=== PATIENT | female | born 1985 | race Caucasian/White ===

== ENCOUNTER 2018-09-01 09:26 | Emergency (ER) | payer SELFPAY ==
[~2018-09-01] VITALS: Ht 162.6 cm; Wt 82.0 kg
[2018-09-01 12:00] VITALS: BP 153/87
== END 2018-09-01 14:00 | disposition left against medical advice (07) ==
LOC: ER 09:26
DX: Z53.21 Procedure and treatment not carried out due to patient leaving prior to being seen by health care provider (principal)

== ENCOUNTER 2021-11-13 22:13 | Emergency (ER) | payer MEDICAID ==
[~2021-11-13] VITALS: Ht 162.6 cm; Wt 83.4 kg
[~2021-11-13 22:13] MED LIST: CEPH500T MT; PHEN-909 MT
[2021-11-13 22:31] VITALS: BP 110/65
[2021-11-14 04:11] LABS: BASOPHILS % 1.7 % (0.0-2.0); EOSINOPHILS % 1.8 % (0.0-5.0); HEMATOCRIT. 34.2 % (36.0-48.0); MEAN CORPUSCULAR HEMOGLOBIN 32.8 pg (28.0-32.0); MEAN CORPUSCULAR VOLUME 93.8 fL (81.0-99.0); MEAN PLATELET VOLUME 8.1 fl (7.4-10.4); MONOCYTES % 6.8 % (2.0-8.0); NEUTROPHILS % 54.7 % (40.0-76.0); PLATELET 243 x1000/uL (130-400); RED BLOOD CELL COUNT 3.64 mill/uL (4.2-5.4); RED CELL DISTRIBUTION WIDTH 12.8 % (11.6-14.6)
[2021-11-14 04:19] LABS: CHLORIDE 107 mEq/L (98-107)
[2021-11-14 04:41] LABS: B-HCG QUANTITATIVE 59544 mIU/mL (<3)
== END 2021-11-14 07:21 | disposition home or self-care (01) ==
LOC: ER 22:13
DX: O46.91 Antepartum hemorrhage, unspecified, first trimester (principal); Z3A.08 8 weeks gestation of pregnancy; Z98.890 Other specified postprocedural states
CPT/HCPCS: 36415; 76801; 80053; 81025; 84702; 85025; 86850; 86900; 99284

== ENCOUNTER 2021-12-09 16:46 | Observation (INO) | payer MEDICAID | END 2021-12-09 17:00 | disposition home or self-care (01) | LOC: 8 EST LDRP 16:46 | PROVIDERS: ADMIT Obstetrics & Gynecology; ATTEND Obstetrics & Gynecology | DX: O34.11 Maternal care for benign tumor of corpus uteri, first trimester (principal); D25.9 Leiomyoma of uterus, unspecified; Z3A.12 12 weeks gestation of pregnancy; Z98.891 History of uterine scar from previous surgery | CPT/HCPCS: G0378 ==

== ENCOUNTER 2021-12-09 17:17 | Emergency (ER) | payer MEDICAID ==
[~2021-12-09] VITALS: Ht 162.6 cm; Wt 85.0 kg
[2021-12-09 17:21] VITALS: BP 130/71
[2021-12-09 20:30] LABS: BASOPHILS % 0.7 % (0.0-2.0); HEMATOCRIT. 35.3 % (36.0-48.0); HEMOGLOBIN. 12.2 g/dL (12.0-16.0); LYMPHOCYTES % 27.1 % (20.0-50.0); MEAN CORPUSCULAR HEMOGLOBIN 32.5 pg (28.0-32.0); MEAN CORPUSCULAR VOLUME 94.2 fL (81.0-99.0); MEAN PLATELET VOLUME 7.9 fl (7.4-10.4); MONOCYTES % 8.4 % (2.0-8.0); NEUTROPHILS % 61.8 % (40.0-76.0); PLATELET 264 x1000/uL (130-400); RED BLOOD CELL COUNT 3.75 mill/uL (4.2-5.4); RED CELL DISTRIBUTION WIDTH 12.5 % (11.6-14.6)
[2021-12-09 20:32] LABS: CHLORIDE 107 mEq/L (98-107)
[2021-12-09 20:50] LABS: CLARITY URINE CLEAR (CLEAR); COLOR URINE YELLOW (YELLOW); KETONES URINE TRACE (NEGATIVE); LEUKOCYTE ESTERASE URINE NEGATIVE (NEGATIVE); NITRITE URINE NEGATIVE (NEGATIVE); OCCULT BLOOD URINE NEGATIVE (NEGATIVE); PH URINE 5.5 (4.5-8.0); PROTEIN URINE NEGATIVE (NEGATIVE); SPECIFIC GRAVITY URINE 1.031 (1.005-1.030); UROBILINOGEN URINE 0.2 E.U./dL (0.2-1.0)
[2021-12-09 20:55] LABS: B-HCG QUANTITATIVE 29674 mIU/mL (<3)
== END 2021-12-09 22:56 | disposition home or self-care (01) ==
LOC: ER 17:17
DX: O34.11 Maternal care for benign tumor of corpus uteri, first trimester (principal); Z3A.12 12 weeks gestation of pregnancy; Z98.890 Other specified postprocedural states
CPT/HCPCS: 36415; 76801; 80053; 81003; 81025; 84702; 85025; 86850; 86900; 99284

== ENCOUNTER 2022-01-04 16:58 | Emergency (ER) | payer MEDICAID ==
[~2022-01-04] VITALS: Ht 162.6 cm; Wt 86.0 kg
[2022-01-04 17:26] VITALS: BP 133/79
[2022-01-04] MEDS ORDERED: ACETAMINOPHEN 325MG TABLET PO ONE (20:45)
[2022-01-04] MEDS ORDERED: TOPUD PO (22:23)
== END 2022-01-05 00:21 | disposition home or self-care (01) ==
LOC: ER 16:58
DX: O98.512 Other viral diseases complicating pregnancy, second trimester (principal); U07.1 COVID-19; O26.812 Pregnancy related exhaustion and fatigue, second trimester; Z3A.15 15 weeks gestation of pregnancy; Z98.890 Other specified postprocedural states
CPT/HCPCS: 87804; 99283

== ENCOUNTER 2022-06-20 08:45 | Inpatient (IN) | payer MEDICAID ==
[~2022-06-20] VITALS: Ht 162.6 cm; Wt 108.9 kg
[~2022-06-20 08:45] MED LIST changes: +TOPUD PO
[2022-06-20] MEDS ORDERED: OXYTOCIN 30 UNITS/500ML NS PMX 500 ML IV SCH (10:00)
[2022-06-20] MEDS ORDERED: METHYLERGONOVINE MALEATE 0.2 MG/ML IM PRN (10:00)
[2022-06-20] MEDS ORDERED: NALOXONE HCL 0.4 MG/ML 1ML VIAL IM PRN (10:00)
[2022-06-20] MEDS: LACTATED RINGERS 1,000 ML IV SCH ×2 (10:30→22:48)
[2022-06-20 10:47] LABS: BASOPHILS % 0.3 % (0.0-2.0); EOSINOPHILS % 1.3 % (0.0-5.0); HEMATOCRIT. 32.7 % (36.0-48.0); HEMOGLOBIN. 11.3 g/dL (12.0-16.0); LYMPHOCYTES % 21.6 % (20.0-50.0); MEAN CORPUSCULAR HEMOGLOBIN 33.5 pg (28.0-32.0); MEAN CORPUSCULAR VOLUME 96.7 fL (81.0-99.0); MONOCYTES % 6.9 % (2.0-8.0); NEUTROPHILS % 69.9 % (40.0-76.0); PLATELET 276 x1000/uL (130-400); RED BLOOD CELL COUNT 3.39 mill/uL (4.2-5.4)
[2022-06-20] MEDS ORDERED: MORPHINE SULFATE/PF 1MG/ML 10ML AMP ONE (11:28)
[2022-06-20] MEDS ORDERED: PHENYLEPHRINE HCL 10 MG/ML 1ML (IV VIAL) IV ONE (11:28)
[2022-06-20] MEDS ORDERED: ONDANSETRON HCL 4MG/2ML INJ ONE (11:55)
[2022-06-20] MEDS ORDERED: KETOROLAC 60MG/2ML VIAL IM ONE (11:55)
[2022-06-20] MEDS ORDERED: DEXAMETHASONE 4MG/ML 1ML VIAL ONE (11:55)
[2022-06-20] MEDS ORDERED: CEFAZOLIN SODIUM 1000MG/VIAL ONE (11:55)
[2022-06-20] MEDS ORDERED: EPHEDRINE SULFATE 50MG/ML VIAL ONE (11:55)
[2022-06-20 12:07] LABS: CLARITY URINE CLEAR (CLEAR); COLOR URINE YELLOW (YELLOW); KETONES URINE NEGATIVE (NEGATIVE); LEUKOCYTE ESTERASE URINE NEGATIVE (NEGATIVE); NITRITE URINE NEGATIVE (NEGATIVE); OCCULT BLOOD URINE NEGATIVE (NEGATIVE); PH URINE 6.5 (4.5-8.0); PROTEIN URINE NEGATIVE (NEGATIVE); UROBILINOGEN URINE 0.2 E.U./dL (0.2-1.0)
[2022-06-20] MEDS ORDERED: MORPHINE SULFATE 10 MG/ML CPJ IV PRN (12:30)
[2022-06-20] MEDS ORDERED: FENTANYL CITRATE/PF 50MCG/ML 2ML VIAL IV PRN (12:30)
[2022-06-20] MEDS ORDERED: NALOXONE HCL 0.4 MG/ML 1ML VIAL IV PRN (12:30)
[2022-06-20 12:41] LABS: *AMPHETAMINES SCREEN URINE NEGATIVE (NEGATIVE); *BARBITURATES SCREEN URINE NEGATIVE (NEGATIVE); *BENZODIAZEPINES SCREEN URINE NEGATIVE (NEGATIVE); *COCAINE SCREEN URINE NEGATIVE (NEGATIVE); CANNABINOID URINE SCREEN NEGATIVE (NEGATIVE); METHADONE URINE SCREEN NEGATIVE (NEGATIVE); OPIATES URINE SCREEN NEGATIVE (NEGATIVE); PHENCYCLIDINE URINE SCREEN NEGATIVE (NEGATIVE)
[2022-06-20 12:52] LABS: HEPATITIS B SURFACE ANTIGEN NEGATIVE
[2022-06-20] MEDS ORDERED: BISACODYL 10MG SUPP PR PRN (13:00)
[2022-06-20] MEDS ORDERED: DIPHENHYDRAMINE 25MG CAPSULE PO PRN (13:00)
[2022-06-20] MEDS ORDERED: IBUPROFEN 400MG TABLET PO PRN (13:00)
[2022-06-20] MEDS ORDERED: HYDROMORPHONE HCL/PF 2MG/ML CPJ IM PRN (13:00)
[2022-06-20] MEDS ORDERED: NALOXONE HCL 0.4MG/ML VIAL IV PRN (13:15)
[2022-06-20 14:45] VITALS: BP 120/69
[2022-06-20] MEDS ORDERED: PNEUMOCOCCAL 23-VAL P-SAC VAC 0.5 ML IM ONE (17:30)
[2022-06-20 20:00] VITALS: BP 108/49
[2022-06-20 21:37] LABS: PARTIAL THROMBOPLASTIN TIME 25.9 sec (23.4-31.0); PROTHROMBIN TIME 10.3 sec (9.6-11.0)
[2022-06-21] MEDS: KETOROLAC 30MG/ML VIAL IV PRN ×2 (05:33→11:36)
[2022-06-21 06:00] VITALS: BP 109/62
[2022-06-21 06:55] LABS: BASOPHILS % 0.4 % (0.0-2.0); EOSINOPHILS % 0.4 % (0.0-5.0); HEMATOCRIT. 26.5 % (36.0-48.0); HEMOGLOBIN. 9.2 g/dL (12.0-16.0); LYMPHOCYTES % 20.2 % (20.0-50.0); MEAN CORPUSCULAR HEMOGLOBIN 33.7 pg (28.0-32.0); MEAN CORPUSCULAR VOLUME 96.8 fL (81.0-99.0); MEAN PLATELET VOLUME 7.8 fl (7.4-10.4); MONOCYTES % 9.1 % (2.0-8.0); NEUTROPHILS % 69.9 % (40.0-76.0); PLATELET 226 x1000/uL (130-400); RED BLOOD CELL COUNT 2.73 mill/uL (4.2-5.4); RED CELL DISTRIBUTION WIDTH 12.9 % (11.6-14.6)
[2022-06-21 08:00] VITALS: BP 125/71
[2022-06-21] MEDS: FERROUS SULFATE 325MG TABLET PO SCH ×2 (09:07→17:27)
[2022-06-21] MEDS: DOCUSATE SODIUM 100MG CAPSULE PO SCH ×3 (09:07→20:03)
[2022-06-21 16:00] VITALS: BP 134/74
[2022-06-21] MEDS: PRENATAL VIT/FE FUMARATE/FA TABLET PO SCH (17:27)
[2022-06-21] MEDS: IBUPROFEN 800MG TABLET PO PRN ×2 (17:28→23:21)
[2022-06-21 20:00] VITALS: BP 133/83
[2022-06-21] MEDS: ACETAMINOPHEN WITH CODEINE 300/30MG TABLET PO PRN (20:03)
[2022-06-22] MEDS ORDERED: IBUP-2030 PO (03:46)
[2022-06-22 03:56] VITALS: BP 121/73
[2022-06-22] MEDS: ACETAMINOPHEN WITH CODEINE 300/30MG TABLET PO PRN (04:36)
[2022-06-22] MEDS ORDERED: TETANUS, DIPHTHERIA, PERTUSSIS VAC/PF 0.5ML (>10YR OLD) IM ONE (07:00)
[2022-06-22] MEDS: FERROUS SULFATE 325MG TABLET PO SCH (07:39)
[2022-06-22] MEDS: IBUPROFEN 800MG TABLET PO PRN (07:39)
[2022-06-22] MEDS: PRENATAL VIT/FE FUMARATE/FA TABLET PO SCH (07:39)
[2022-06-22 08:00] VITALS: BP 127/83
== END 2022-06-22 12:55 | disposition home or self-care (01) | DRG 539 ==
LOC: OBSVTOIN 08:45 → 8 EST LDRP 08:45 → 8EST 14:29
PROVIDERS: ADMIT Obstetrics & Gynecology; ATTEND Obstetrics & Gynecology
PROC: 10D00Z1 Extraction of Products of Conception, Low, Open Approach (ICD-10-PCS; principal; 2022-06-20)
PROC: 0UB70ZZ Excision of Bilateral Fallopian Tubes, Open Approach (ICD-10-PCS; 2022-06-20)
DX: O34.211 Maternal care for low transverse scar from previous cesarean delivery (principal); O34.13 Maternal care for benign tumor of corpus uteri, third trimester; Z20.822 Contact with and (suspected) exposure to COVID-19; Z30.2 Encounter for sterilization; Z37.0 Single live birth; Z3A.39 39 weeks gestation of pregnancy
CPT/HCPCS: 36415; 80305; 81003; 85025; 86592; 86703; 86762; 86850; 86900; 86920; 87340; 87426; 88302; 88307; 90715; 90732; 99281; J0690; J1100; J1885; J2274; J2370; J2405; J3490; J7120; A4315